=== PATIENT | male | born 1975 | race Caucasian/White ===

== ENCOUNTER 2024-03-13 20:05 | Emergency (ER) | payer SELFPAY ==
[~2024-03-13] VITALS: Ht 185.4 cm; Wt 96.3 kg
[2024-03-13 20:32] VITALS: TEMP 98; O2SAT 97
[2024-03-13] MEDS ORDERED: AMOX1TAB16 MT (21:39)
[2024-03-13] MEDS: TETANUS, DIPHTHERIA, PERTUSSIS VAC/PF 0.5ML (>10YR OLD) IM ONE (22:26)
[2024-03-13] MEDS: BACITRACIN ZINC OINT UDPKT TOP ONE (22:26)
[2024-03-13 22:28] VITALS: BP 136/77; PULSE 74; RESP 14
== END 2024-03-13 22:35 | disposition home or self-care (01) ==
LOC: ER 20:05
DX: S41.151A Open bite of right upper arm, initial encounter (principal); I10 Essential (primary) hypertension; W54.0XXA Bitten by dog, initial encounter; Y93.89 Activity, other specified; Y92.89 Other specified places as the place of occurrence of the external cause; Y99.8 Other external cause status
CPT/HCPCS: 90471; 90715; 99283